=== PATIENT | female | born 1955 | race Hispanic/Latino ===

== ENCOUNTER 2019-03-25 11:21 | Outpatient (CLI) | payer OTHER ==
--- NOTE | 2019-03-25 15:58 | XRay Report ---
BILATERAL KNEES STANDING, AP VIEW LEFT SHOULDER, 3 VIEWS INDICATION: PAIN IN BOTH KNEES. LEFT SHOULDER PAIN. COMPARISON: None. IMPRESSION: Views of the bilateral knees demonstrate mild medial compartment narrowing in the right knee and moderate medial compartment narrowing in the left knee. There is no evidence for fracture, b one lesion or soft tissue abnormality. Views of the left shoulder demonstrate severe osteoarthritic changes at the left glenohumeral joint. There is near complete loss of joint space with articular surface sclerosis and subchondral cyst form ation. There are ill-defined calcifications surrounding the humeral head which may be capsular in derrick gin. There is normal articulation at the left acromioclavicular joint. No evidence for acute fracture or malalignment. Signer Name: Tulio Martins Jr, MD Signed: 03/25/2019 3:53 PM Workstation Name: [id number]
== END 2019-03-25 11:22 | disposition home or self-care (01) ==
LOC: PF 11:21
PROVIDERS: ATTEND Internal Medicine
DX: M19.012 Primary osteoarthritis, left shoulder (principal); M25.562 Pain in left knee; M25.561 Pain in right knee
CPT/HCPCS: 73565; 94010